=== PATIENT | male | born 1950 | race Caucasian/White ===

== ENCOUNTER 2023-10-12 07:11 | Outpatient (RCR) | payer MEDICARE, SELFPAY ==
--- NOTE | 2023-06-28 16:28 | CR1_ITS ---
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
--- NOTE | 2023-07-26 12:49 | CR1_ITS ---
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
--- NOTE | 2023-08-29 11:10 | CR1_ITS ---
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
--- NOTE | 2023-09-23 10:41 | CR1_ITS ---
The 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
== END 2023-10-14 16:59 | disposition home or self-care (01) ==
LOC: CR 07:11
PROVIDERS: Visit Provider Internal Medicine
DX: J84.112 Idiopathic pulmonary fibrosis (principal)
CPT/HCPCS: 94625; G0239

== ENCOUNTER 2024-01-11 08:17 | Outpatient (RCR) | payer MEDICARE, SELFPAY ==
--- NOTE | 2023-10-24 13:49 | CR1_ITS ---
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
--- NOTE | 2023-11-22 12:53 | CR1_ITS ---
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
== END 2024-04-13 14:00 | disposition home or self-care (01) ==
LOC: CR 08:17
PROVIDERS: Visit Provider Internal Medicine
DX: J84.112 Idiopathic pulmonary fibrosis (principal)
CPT/HCPCS: G0239

== ENCOUNTER 2024-07-30 07:05 | Outpatient (RCR) | payer MEDICARE, SELFPAY ==
--- NOTE | 2024-04-16 14:35 | PC.NURSE ---
Patient orientation completed today for cardiac rehab. Patient is currently attempting to be added to the lung transplant list through the [facility]. Patient states he has to complete a 6MW test during this process and is currently unable to complete it. Patient provided us with the number [phone] option 3 for the transplant coordination team. A message was left with them on this day in regards to what the exact expectations are for this 6 MW test. Awaiting a call back at this time.
--- NOTE | 2024-04-16 14:44 | CR1_ITS ---
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
--- NOTE | 2024-04-17 15:46 | CR1_ITS ---
The [facility] Test Date: 2024-04-16 Pat Name: JOE MILLAN Department: Room: - Gender: Male Rn Pediatric: : 1950 Requested By: PRUDENCIO TRAN Order Number: [id number] Brit MD: PRUDENCIO TRAN Interpretive Statements Session Date: Electronically Signed On 04-18-2024 7:01:31 EDT by PRUDENCIO TRAN
--- NOTE | 2024-05-15 11:00 | CR1_ITS ---
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
--- NOTE | 2024-06-13 08:00 | CR1_ITS ---
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
--- NOTE | 2024-07-13 07:47 | CR1_ITS ---
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
--- NOTE | 2024-08-09 08:13 | CR1_ITS ---
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
--- NOTE | 2024-09-11 12:55 | CR1_ITS ---
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
== END 2024-09-11 13:49 | disposition home or self-care (01) ==
LOC: CR 07:05
PROVIDERS: Visit Provider Internal Medicine Cardiovascular Disease
DX: Z95.5 Presence of coronary angioplasty implant and graft (principal); Z95.1 Presence of aortocoronary bypass graft; R93.89 Abnormal findings on diagnostic imaging of other specified body structures; J18.1 Lobar pneumonia, unspecified organism
CPT/HCPCS: 93798